=== PATIENT | male | born 1975 | race Caucasian/White ===

== ENCOUNTER → 2016-11-29 | Outpatient (CLI) | payer OTHER ==
--- NOTE | 2016-11-29 21:02 | Diagnostic Imaging Report ---
INDICATION: 41-year-old male presents with swelling of the right testicle. COMPARISONS: None. TECHNIQUE: Real-time sonographic images of the scrotum and scrotal contents are obtained. Color flow Doppler was performed. FINDINGS: The right testis measures 4.2 cm x 2.2 cm x 2.7 cm and shows uniform echotexture. There is a 4 mm epididymal cyst. The epididymis appears slightly prominent and shows some increased vascularity. There is a small right hydrocele. The left testis measures 3.1 cm x 1.7 cm x 2.9 cm and shows uniform echotexture. There is normal flow by color Doppler. There is a trace left hydrocele. IMPRESSION: Findings are consistent with right epididymitis. Dictated by: Dictated on workstation # [id number]
== END ==
LOC: RAD 20:05
PROVIDERS: ATTEND Nurse Practitioner Family
DX: N50.9 Disorder of male genital organs, unspecified (principal); N50.3 Cyst of epididymis; N43.3 Hydrocele, unspecified
CPT/HCPCS: 76870